=== PATIENT | male | born 1955 | race Caucasian/White ===

== ENCOUNTER 2020-01-16 14:11 | Outpatient (CLI) | payer OTHER | END 2020-01-16 23:59 | disposition home or self-care (01) | LOC: LAB.R 14:11 | PROVIDERS: ATTEND Physician Assistant Medical | DX: R22.31 Localized swelling, mass and lump, right upper limb (principal) | CPT/HCPCS: 81599; 87070; 87205; 87255 ==

== ENCOUNTER 2020-04-20 09:30 | Outpatient (CLI) | payer OTHER ==
[2020-04-20 14:54] LABS: BASOPHILS # (AUTO) 0.1 10^3/uL (0.0-0.1); EOSINOPHILS # (AUTO) 0.3 10^3/uL (0.0-0.7); EOSINOPHILS % (AUTO) 4.1 %; HGB - HEMOGLOBIN 17.1 g/dL (14.0-18.0); LYMPHOCYTES # (AUTO) 2.3 10^3/uL (1.5-3.5); LYMPHOCYTES % (AUTO) 37.8 %; MEAN CORPUSCULAR HEMOGLOBIN 30.1 pg (27.0-31.0); MEAN PLATELET VOLUME 9.5 fL (7.4-11.4); MONOCYTES # (AUTO) 0.6 10^3/uL (0.0-1.0); MONOCYTES % (AUTO) 9.1 %; NEUTROPHILS # (AUTO) 2.9 10^3/uL (1.5-6.6); NEUTROPHILS % (AUTO) 47.7 %; PLT - PLATELET COUNT 237 10^3/uL (130-450); RED BLOOD COUNT 5.69 10^6/uL (4.70-6.10); RED CELL DISTRIBUTION WIDTH 12.7 % (12.0-15.0); WHITE BLOOD COUNT 6.1 x10^3/uL (4.8-10.8)
[2020-04-20 15:18] LABS: ALBUMIN 4.6 g/dL (3.2-5.5); ALBUMIN/GLOBULIN RATIO 1.5 (1.0-2.2); BILIRUBIN,TOTAL 0.6 mg/dL (0.2-1.0); CALCIUM 9.5 mg/dL (8.5-10.3); CREATININE 1.1 mg/dL (0.6-1.2); TOTAL PROTEIN 7.6 g/dL (6.7-8.2)
== END 2020-04-20 09:31 | disposition home or self-care (01) ==
LOC: LAB.S 09:30
PROVIDERS: ATTEND Registered Nurse
DX: J45.998 Other asthma (principal)
CPT/HCPCS: 36415; 80053; 85025

== ENCOUNTER 2023-03-31 12:59 | Outpatient (CLI) | payer OTHER | END 2023-03-31 23:59 | disposition short-term general hospital (02) | LOC: EMS 12:59 | DX: R06.09 Other forms of dyspnea (principal); R42 Dizziness and giddiness | CPT/HCPCS: A0425; A0429 ==